=== PATIENT | female | born 1980 | race Caucasian/White ===

== ENCOUNTER 2019-02-17 15:38 | Outpatient (CLI) | payer OTHER | END 2019-02-17 19:39 | disposition home or self-care (01) | LOC: NST 15:38 | DX: Z34.82 Encounter for supervision of other normal pregnancy, second trimester (principal) ==

== ENCOUNTER 2019-02-24 12:32 | Outpatient (CLI) | payer OTHER | END 2019-02-24 13:22 | disposition home or self-care (01) | LOC: NST 12:32 | DX: Z34.83 Encounter for supervision of other normal pregnancy, third trimester (principal) ==

== ENCOUNTER 2019-03-10 13:25 | Outpatient (CLI) | payer OTHER | END 2019-03-10 14:57 | disposition home or self-care (01) | LOC: NST 13:25 | DX: Z34.83 Encounter for supervision of other normal pregnancy, third trimester (principal) ==

== ENCOUNTER 2019-03-17 16:21 | Outpatient (CLI) | payer OTHER | END 2019-03-17 17:40 | disposition home or self-care (01) | LOC: NST 16:21 | DX: Z34.83 Encounter for supervision of other normal pregnancy, third trimester (principal) ==

== ENCOUNTER 2019-03-24 11:48 | Outpatient (CLI) | payer OTHER | END 2019-03-24 13:29 | disposition home or self-care (01) | LOC: NST 11:48 | DX: Z34.83 Encounter for supervision of other normal pregnancy, third trimester (principal) ==

== ENCOUNTER 2019-03-31 11:17 | Outpatient (CLI) | payer OTHER | END 2019-03-31 13:41 | disposition home or self-care (01) | LOC: NST 11:17 | DX: Z34.83 Encounter for supervision of other normal pregnancy, third trimester (principal) ==

== ENCOUNTER 2019-04-05 11:30 | Outpatient (CLI) | payer OTHER | END 2019-04-05 12:47 | disposition home or self-care (01) | LOC: NST 11:30 | DX: Z34.83 Encounter for supervision of other normal pregnancy, third trimester (principal) ==

== ENCOUNTER 2019-04-09 11:42 | Outpatient (CLI) | payer OTHER | END 2019-04-09 12:15 | disposition home or self-care (01) | LOC: NST 11:42 | DX: Z34.83 Encounter for supervision of other normal pregnancy, third trimester (principal) ==

== ENCOUNTER 2019-04-16 11:04 | Outpatient (CLI) | payer OTHER | END 2019-04-16 11:51 | disposition home or self-care (01) | LOC: NST 11:04 | DX: Z34.83 Encounter for supervision of other normal pregnancy, third trimester (principal) ==

== ENCOUNTER 2019-04-19 12:15 | Outpatient (CLI) | payer OTHER | END 2019-04-19 12:51 | disposition home or self-care (01) | LOC: NST 12:15 | DX: Z34.83 Encounter for supervision of other normal pregnancy, third trimester (principal) ==

== ENCOUNTER 2019-04-19 14:15 | Inpatient (IN) | payer OTHER ==
[~2019-04-19] VITALS: Ht 170.2 cm; Wt 1638.0 kg
[2019-04-22] MEDS ORDERED: METFORMIN HCL500 M3 PO (13:09)
[2019-04-22] MEDS ORDERED: ADALAT CC60 MG PO (13:09)
[2019-04-22] MEDS ORDERED: ASPIR 8181 MG PO (13:09)
[2019-04-22] MEDS ORDERED: OBTREX DHA COM1 EACH PO (13:10)
== END 2019-04-29 14:43 | disposition home or self-care (01) | DRG 784 ==
LOC: OB/GYN 04-26 04:52 → LDR 04-26 04:52 → OB/GYN 04-26 11:00
PROVIDERS: ADMIT Obstetrics & Gynecology Maternal & Fetal Medicine
PROC: 0UL70ZZ Occlusion of Bilateral Fallopian Tubes, Open Approach (ICD-10-PCS; 2019-04-26)
PROC: 4A1HXCZ Monitoring of Products of Conception, Cardiac Rate, External Approach (ICD-10-PCS; 2019-04-26)
PROC: 10D00Z1 Extraction of Products of Conception, Low, Open Approach (ICD-10-PCS; principal; 2019-04-26 08:30)
DX: O82 Encounter for cesarean delivery without indication (principal); O30.133 Triplet pregnancy, trichorionic/triamniotic, third trimester; O32.1XX0 Maternal care for breech presentation, not applicable or unspecified; Z3A.35 35 weeks gestation of pregnancy; Z30.2 Encounter for sterilization; Z37.0 Single live birth

== ENCOUNTER 2019-04-22 10:48 | Outpatient (CLI) | payer OTHER ==
[2019-04-22] MEDS ORDERED: METFORMIN HCL500 M3 PO (13:09)
[2019-04-22] MEDS ORDERED: ADALAT CC60 MG PO (13:09)
[2019-04-22] MEDS ORDERED: ASPIR 8181 MG PO (13:09)
[2019-04-22] MEDS ORDERED: OBTREX DHA COM1 EACH PO (13:10)
== END 2019-04-22 11:37 | disposition home or self-care (01) ==
LOC: NST 10:48
DX: Z34.83 Encounter for supervision of other normal pregnancy, third trimester (principal)